=== PATIENT | male | born 1965 ===

== ENCOUNTER 2018-12-23 18:52 | Inpatient (IN) ==
[2018-12-23] MEDS ORDERED: *HR* FentaNYL (PF) 100 MCG/2 ML VIAL IVP ONE (18:56)
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
[2018-12-23 19:18] LABS: Basophils # 0.1 K/mcL (0.0-0.2); Basophils % 0.4 %; Eosinophils # 0.3 K/mcL (0.0-0.6); Eosinophils % 1.9 %; Hematocrit 45.3 % (37.5-50.1); Immature Granulocytes % 0.4 % (0-4); Lymphocytes # 2.4 K/mcL (0.6-4.6); Lymphocytes % 17.3 %; Mean Corpuscular HGB Conc 33.1 g/dL (31.6-35.5); Mean Corpuscular Hemoglobin 29.2 pg (28.0-33.3); Mean Corpuscular Volume 88.3 fL (83.0-100.0); Mean Platelet Volume 10.6 fL (9.4-12.4); Monocytes # 0.9 K/mcL (0.0-1.3); Monocytes % 6.7 %; Platelet Count 275 K/mcL (140-400); Red Blood Count 5.13 M/mcL (4.19-5.50); Red Cell Distribution Width 14.7 % (11.5-14.5); Segmented Neutrophils % 73.3 %
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
[2018-12-23 19:39] LABS: BUN/Creatinine Ratio 22 (6-26); Blood Urea Nitrogen 24 mg/dL (6-20); Calcium 10.3 mg/dL (8.6-10.3); Carbon Dioxide 24 mEq/L (23-29); Chloride 104 mEq/L (98-107); Glucose 178 mg/dL (70-105); Osmolality,Calculated 294 (280-300); Potassium 4.8 mEq/L (3.5-5.1); Sodium 138 mEq/L (136-145); eGFR For Non-African Americans > 60 (> 60)
[2018-12-23] MEDS ORDERED: Dextrose Gel 15 GM/37.5 ML TUBE PO PRN ×2 (20:29)
[2018-12-23] MEDS ORDERED: *HR* Dextrose 50 % in Water (Syg) 50 ML SYRINGE IVP PRN (20:29)
[2018-12-23] MEDS: OXYCODONE Oral CONC 10 MG/0.5 ML ORAL.SYG SL PRN (21:20)
[2018-12-23] MEDS ORDERED: *HR* Morphine Sulfate SR (12 HR) 30 MG TABLET.ER PO ONE (22:50)
[2018-12-23] MEDS: *HR* Heparin 5,000 UNIT/ML VIAL SQ SCH (22:59)
[2018-12-23] MEDS: Insulin LISPRO 300 UNITS/3 ML VIAL SQ SCH (22:59)
[2018-12-23] MEDS: Ketorolac 30 MG/ML VIAL IVP PRN (22:59)
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
[2018-12-24] MEDS: OXYCODONE Oral CONC 10 MG/0.5 ML ORAL.SYG SL PRN ×2 (01:36→09:30)
[2018-12-24] MEDS ORDERED: *HR* Nalbuphine 10 MG/ML AMPUL IV ONE (02:47)
[2018-12-24] MEDS: Ketorolac 30 MG/ML VIAL IVP PRN ×2 (06:07→12:18)
[2018-12-24] MEDS: Insulin LISPRO 300 UNITS/3 ML VIAL SQ SCH ×3 (06:26→20:55)
[2018-12-24 06:56] LABS: Prothrombin Time 11.4 Seconds (9.4-12.1)
[2018-12-24 06:58] LABS: Activated Partial Thrombo Time 29.6 Seconds (26.0-36.0)
[2018-12-24] MEDS ORDERED: Pregabalin 75 MG CAPSULE PO SCH (09:00)
[2018-12-24] MEDS ORDERED: Finasteride 5 MG TABLET PO SCH (09:00)
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
[2018-12-24] MEDS: *HR* Heparin 5,000 UNIT/ML VIAL SQ SCH ×2 (09:29→16:43)
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
--- NOTE | 2018-12-24 11:28 | Anesthesia Evaluation PreOp ---
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 Any Significant HX Other Medical History: Renal (BPH), Diabetes Type II, GERD Anesthesia History: No Prior Anesthetic Complications, Past Anesthesia (Right B KA) Alcohol Use: none Drug use: none Medications and Allergies Atorvastatin [Lipitor] 40 DAILY 12/23/18 [History] Finasteride [Proscar] 10 mg PO DAILY 12/23/18 [History] Insulin Glargine [Lantus] 20 unit BID 12/23/18 [History] Liraglutide [Victoza 3-Mychal] mg SQ 12/23/18 [History] Melatonin 12/23/18 [History] Omeprazole [PriLOSEC] 20 mg PO DAILY 12/23/18 [History] Prazosin [Minipress] 1 mg PO HS 12/23/18 [History] Pregabalin [Lyrica] 300 mg PO BID 12/23/18 [History] metFORMIN [Glucophage] 2,000 mg PO 0800 12/23/18 [History] Allergy/AdvReac Type Severity Reaction Status Date / Time adalimumab [From Humira] Allergy Joint Pain Verified 12/23/18 19:17 - Meds/Allergy Pre-op Review Medications Reviewed: Yes Allergies Reviewed: Yes Beta Blockers on Current Med List: No Anesthesia Results - Labs 12/23/18 19:02 12/23/18 19:02 Anesthesia Exam Vital Signs/O2 Sat/Glucose, Most Recent Temp Pulse Resp BP Pulse Ox 98.5 F 107 16 104/67 95 12/24/18 06:45 12/24/18 06:45 12/24/18 06:45 12/24/18 06:45 12/24/18 06:45 Blood Glucose* 157 Height: 5'10"/1.78m Weight: 181 lbs/82 kg NPO (# of Hours): 8 Pain Scale: 4 (at rest) Pain Scale Used: Numeric (1 - 10) - HEENT Pupil (Motor): EOMI Mallampati: II Teeth: Normal Oral Opening: Greater than 3 - MANAGER [employer] LOC: Oriented MANAGER [employer]ETING Motor: Normal RUE, Normal LUE, Normal LLE, Normal Face, Deficit RLE (right BKA) MANAGER [employer] Sensory: Normal: RUE, LUE, LLE, Face, Deficit: RLE (right BKA) - Cardiac Rhythm: Regular Murmur: None - Pulmonary Breath Sounds: bilateral Clear Respiratory Effort: Symmetrical Anesthesia Assess/Plan ASA Score: 3 Level of consciousness: Cooperative, Oriented, Tranquil Anesthetic Plan: General Monitoring Plan: Standard Monitors Recovery Plan: PACU
[2018-12-24] MEDS ORDERED: *HR* Propofol 200 MG/20 ML VIAL IVP ONE (15:25)
[2018-12-24] MEDS ORDERED: *HR* Midazolam HCl 2 MG/2 ML VIAL ONE (15:25)
[2018-12-24] MEDS ORDERED: *HR* FentaNYL (PF) 100 MCG/2 ML VIAL ONE (15:25)
[2018-12-24] MEDS ORDERED: CeFAZolin Syr 2,000MG/20 ML 2,000 MG/20 ML SYRINGE IVPB ONE (15:51)
[2018-12-24] MEDS ORDERED: Ipratropium/Albuterol Neb 3 ML ONE (15:55)
[2018-12-24] MEDS ORDERED: *HR* PHENYLEPHRINE 1,000 MCG/10 ML SYRINGE IVP ONE (16:12)
[2018-12-24] MEDS ORDERED: *HR* Morphine 10 MG/ML VIAL ONE (16:43)
--- NOTE | 2018-12-24 16:59 | Orthopedic Operative Note ---
Date of procedure: 12/24/18 Pre-op diagnosis: Left hip fracture Post-op diagnosis: same Procedure: Procedure: Left hip open reduction intramedullary nail fixation Estimated blood loss: 50 cc Hardware: Metal: 10 x 130 degrees Synthes TFN, 95 mm helical blade, 36 mm distal locking bolt Operative procedure: The patient was brought to the operating room and placed on the operating room table. After general anesthesia was administered the well leg was place in the well leg ly and the operative leg was placed in the fracture leg ly. All pressure points were padded appropriately. The operative extremity was prepped and draped in the sterile surgical fashion patient received IV antibiotic prior to skin incision. A standard direct lateral approach was made over the entry point of the greater trochanter, the incision was made through the skin and subcutaneous tissue hemostasis was obtained with Bovie cautery. Using careful sharp dissection the fascia was identified and incised, flouroscopic assistance was used to identify the entry point. The guidepin was placed at the entry point using fluroscopic assistance, it was over reamed with the proximal reamer. The 10 x 130 degrees nail was placed through the entry hole, across the fracture site into the distal fragment. the position was confirmed with fluroscopy. A guide pin was placed through the proximal locking guide from the lateral femur through the nail across the fracture site into the femoral head, it was over reamed with the reamer. The 95 mm helical blade was placed over the guide pin through the nail into the femoral head, locked in place with the proximal locking bolt. 36 mm Distal locking bolt was placed through the distal locking guide. position of hardware and fracture reduction found to be acceptable with fluroscopic assistance. The wound was irrigated. Fascia was closed with a running #2 PDS suture. The deep tissue was irrigated and closed deep with #1 PDS suture superficially with 0 PDS suture and skin was closed with Dermabond. The patient was placed in a sterile dressing The patient was extubated and transferred to the recovery room in stable condition. Anesthesia: GETA Surgeon: Gomez Velez Was there an psychologist research assistant present: No Estimated blood loss (cc): 50 Condition: stable Disposition: PACU
[2018-12-24 18:00] LABS: Hematocrit 44.9 % (37.5-50.1); Hemoglobin 13.9 g/dL (12.9-16.9)
--- NOTE | 2018-12-24 18:04 | Anesthesia Evaluation Post Op ---
Date of Encounter: 12/24/18 Time of Encounter: 18:03 - Vital Signs Vital Signs: Last Vital Signs Temp 99.2 F 12/24/18 17:42 Pulse 115 12/24/18 17:52 Resp 12 12/24/18 17:52 BP 91/55 12/24/18 17:52 Pulse Ox 100 12/24/18 17:52 - Lungs Lungs: Clear Ascult./Percussion - Airway Airway: Non-obstructed - Cardiovascular Regular Rate - Mental Status Mental Status: Alert & Oriented, Answers Appropriately - Pain Pain Scale: 2 (resting) - Nausea Vomiting Nausea Vomiting: Not Present - Hydration Hydration: NPO - Discharge PostOp Status: Transfer Patient to floor
[2018-12-24] MEDS ORDERED: Dextrose Gel 15 GM/37.5 ML TUBE PO PRN ×2 (18:37)
[2018-12-24] MEDS ORDERED: *HR* Dextrose 50 % in Water (Syg) 50 ML SYRINGE IVP PRN (18:37)
[2018-12-24] MEDS ORDERED: Ketorolac 30 MG/ML VIAL IVP PRN (18:37)
[2018-12-24] MEDS ORDERED: 0.9 % Sodium Chloride 1,000 ML ONE (18:42)
[2018-12-24] MEDS ORDERED: 0.9 % Sodium Chloride 1,000 ML IVC SCH ×2 (18:45→20:30)
[2018-12-24 19:07] LABS: Hematocrit 46.2 % (37.5-50.1); Hemoglobin 13.9 g/dL (12.9-16.9)
[2018-12-24 19:35] LABS: Basophils # 0.1 K/mcL (0.0-0.2); Basophils % 0.3 %; Eosinophils # 0.1 K/mcL (0.0-0.6); Eosinophils % 0.3 %; Hematocrit 41.9 % (37.5-50.1); Hemoglobin 13.1 g/dL (12.9-16.9); Immature Granulocytes % 0.5 % (0-4); Lymphocytes # 0.6 K/mcL (0.6-4.6); Lymphocytes % 2.9 %; Mean Corpuscular HGB Conc 31.3 g/dL (31.6-35.5); Mean Corpuscular Volume 92.9 fL (83.0-100.0); Mean Platelet Volume 10.5 fL (9.4-12.4); Monocytes # 0.8 K/mcL (0.0-1.3); Monocytes % 3.9 %; Neutrophils # 17.8 K/mcL (1.6-8.9); Platelet Count 201 K/mcL (140-400); Red Blood Count 4.51 M/mcL (4.19-5.50); Segmented Neutrophils % 92.1 %
[2018-12-24 19:53] LABS: Albumin 3.9 g/dL (3.5-5.7); Albumin/Globulin Ratio 1.2 (1.1-2.2); Bilirubin,Total 0.3 mg/dL (0.3-1.0); Calcium 9.2 mg/dL (8.6-10.3); Globulin 3.2 g/dL (2.4-3.5); Potassium 4.9 mEq/L (3.5-5.1); Total Protein 7.1 g/dL (6.4-8.9)
[2018-12-24] MEDS: Pregabalin 75 MG CAPSULE PO SCH (20:15)
[2018-12-24] MEDS ORDERED: Acetaminophen IV 1,000 MG/100 ML INFUS..BTL IVPB ONE (20:48)
[2018-12-24] MEDS ORDERED: *HR* Morphine Sulfate SR (12 HR) 30 MG TABLET.ER PO ONE (21:15)
[2018-12-25] MEDS ORDERED: Insulin DETEMIR 100 UNIT/ML X5UNITS SQ ONE ×2 (00:46→14:36)
[2018-12-25] MEDS: Insulin LISPRO 300 UNITS/3 ML VIAL SQ SCH ×3 (00:51→19:14)
--- NOTE | 2018-12-25 02:03 | Event Note ---
Date of Encounter: 12/24/18 Time of Encounter: 19:02 Rapid response called on this pt. d/t severe hypotension following surgery this afternoon. Pt. returned to floor from PACU at approx. 18:30 w/BP noted to be 91/55. Pt. noted to be drowsy but arousable. Subsequent BP 72/46. I arrived to find pt. very drowsy but would respond to mild stimulation. Pt. reported no pain, CP, SOB, or headache. BG noted to be 150. 0.9 IV fluids were running at 125 mls/hr and nurse instructed to change to bolus. Pt. denied any cardiac hx or recent w/u. No Echocardiogram on file to determine LVEF. Stat EKG ordered. BPs ordered Q5MIN. Stat H/H, CMP, CBC, lactic, and troponin ordered. Lactic 1.4. Troponin <0.03. Pt. was pale at first then began to pink up following fluid bolus. Pt. began reporting pain in left hip from left hip pinning today. Nurse instructed to hold all opioid pain medications and BP meds for now. BP increased to 90s systolically but did fluctuate to 80s and back. BP at 19:44 100/60 manually. HR tachy in 110s to 120s. Telemetry ordered. Pts. pain began to increase. IVPB Ofirmev ordered d/t pts. current hypotension. Alerted by pts. nurse Mandie RN at 00:38 patient's BG was 471. Patient was asymptomatic. Patient had received 14 units SQ sliding scale insulin. 15 units Levemir one- time dose ordered with instructions to check patient's BG every hour 4. Pts. Toradol held and Ultram ordered for pain control while pt. continues to be hypotensive. Nurse instructed to continue monitoring pt. closely and alert me immediately of any adverse changes.
[2018-12-25] MEDS: traMADol 50 MG TABLET PO PRN ×2 (02:07→09:16)
[2018-12-25] MEDS ORDERED: Acetaminophen IV 500 MG/50 ML INFUS..BTL IVPB ONE (04:18)
[2018-12-25] MEDS ORDERED: 0.9 % Sodium Chloride 1,000 ML ONE (05:02)
[2018-12-25 06:32] LABS: Hematocrit 42.9 % (37.5-50.1); Hemoglobin 12.9 g/dL (12.9-16.9); Mean Corpuscular HGB Conc 30.1 g/dL (31.6-35.5); Mean Corpuscular Volume 96.4 fL (83.0-100.0); Mean Platelet Volume 10.7 fL (9.4-12.4); Platelet Count 171 K/mcL (140-400); Red Blood Count 4.45 M/mcL (4.19-5.50); Red Cell Distribution Width 14.6 % (11.5-14.5)
[2018-12-25] MEDS: *HR* Heparin 5,000 UNIT/ML VIAL SQ SCH ×3 (06:35→20:12)
--- NOTE | 2018-12-25 06:40 | Orthopedics Progress Note ---
Date of Encounter: 12/25/18 Time of Encounter: 06:40 Subjective Interval history: Patient was seen this morning doing well without complaints. Afebrile vital signs stable. Operative extremity: Neurovascularly intact Dressing clean dry and intact Calves nontender Assessment and plan: Continue with postoperative care Discharged when cleared by medical team Objective Vital signs: Vital Signs Temp Pulse Resp BP Pulse Ox 12/25/18 04:11 98.1 F 102 17 119/72 92 12/25/18 00:36 98 12/24/18 23:15 97.6 F 105 17 94/60 98 12/24/18 20:48 111 100/64 12/24/18 20:35 117 127/66 12/24/18 20:24 113 99/62 12/24/18 20:14 112 104/59 12/24/18 20:04 112 115/72 12/24/18 19:54 116 72/39 12/24/18 19:45 117 80/48 12/24/18 19:34 118 99/57 12/24/18 19:30 114 60/32 12/24/18 19:24 115 88/55 12/24/18 19:17 117 14 88/54 92 12/24/18 19:15 115 93/57 12/24/18 19:04 112 115/72 12/24/18 18:33 119 12 87/54 12/24/18 18:02 98.3 F 115 12 85/48 100 12/24/18 17:52 115 12 91/55 100 12/24/18 17:42 99.2 F 117 12 89/53 100 12/24/18 17:32 115 12 94/56 99 12/24/18 17:22 116 12 93/56 100 12/24/18 17:12 98.8 F 116 12 106/64 95 12/24/18 15:50 99 16 100/69 93 12/24/18 11:47 98.7 F 102 97 101/64 12/24/18 06:45 98.5 F 107 16 104/67 95 Intake and Output 12/24/18 12/24/18 12/25/18 15:59 23:59 07:59 Intake Total 1020 / 1020 Output Total 50 / 50 650 / 650 Balance 970 / 970 -650 / -650 Intake: IV Fluids 1020 / 1020 0.9 % Sodium Chloride 1,000 ML 1000 / 1000 @ 999 mls/hr IVC .Q1H1M SIMRAN Rx# :[id number] Ancef Syringe 2,000 MG/20 ML 2, 20 / 20 000 mg In 20 ml @ 200 mls/hr IVPB PREOP ONE Rx#:[id number] Output: Urine 250 / 250 Estimated Blood Loss 50 / 50 Straight Cath 400 / 400 Other: Weight 82.3 kg Blood Glucose* 73 150 374 Patient Weight 12/25/18 23:59 Weight 82.3 kg - Labs CBC & BMP: 12/24/18 19:23 12/24/18 19:23 Labs: Abnormal lab results WBC 19.3 K/mcL (4.3-11.1) H 12/24/18 19:23 MCHC 31.3 g/dL (31.6-35.5) L 12/24/18 19:23 RDW 15.0 % (11.5-14.5) H 12/24/18 19:23 Neutrophils # 17.8 K/mcL (1.6-8.9) H 12/24/18 19:23 Carbon Dioxide 22 mEq/L (23-29) L 12/24/18 19:23 BUN 38 mg/dL (6-20) H 12/24/18 19:23 Creatinine 1.66 mg/dL (0.70-1.30) H 12/24/18 19:23 Est GFR ( Amer) 53 (> 60) L 12/24/18 19:23 Est GFR (Non-Af Amer) 44 (> 60) L 12/24/18 19:23 Glucose 183 mg/dL (70-105) H 12/24/18 19:23 Calculated Osmolality 302 (280-300) H 12/24/18 19:23 Consult Discharge Plan - Plan [facility]errals: [facility] [Primary Care Provider] -
[2018-12-25 07:40] LABS: Potassium 5.4 mEq/L (3.5-5.1)
[2018-12-25 07:41] LABS: Calcium 8.4 mg/dL (8.6-10.3)
[2018-12-25] MEDS ORDERED: Insulin Regular, Human 100 UNIT/ML IV PRN ×2 (08:50→12:04)
[2018-12-25] MEDS ORDERED: Insulin Regular, Human 100 UNIT/ML IV ONE (08:50)
[2018-12-25] MEDS ORDERED: D5% in 0.45% NACL 1,000 ML IVC PRN (08:50)
[2018-12-25] MEDS ORDERED: *HR* Dextrose 50 % in Water (Syg) 50 ML SYRINGE IVP PRN ×6 (08:50→16:10)
[2018-12-25] MEDS ORDERED: Finasteride 5 MG TABLET PO SCH (09:00)
[2018-12-25] MEDS ORDERED: Insulin Human Regular 100 UNIT in 0.9 % Sodium Chloride 100 ML IVC SCH ×2 (09:00→12:15)
[2018-12-25] MEDS: Pregabalin 75 MG CAPSULE PO SCH ×2 (09:16→20:12)
[2018-12-25 10:40] LABS: Estimated Average Glucose 260 mg/dl; Hemoglobin A1C 10.7 %
[2018-12-25] MEDS: OXYCODONE Oral CONC 10 MG/0.5 ML ORAL.SYG SL PRN ×3 (11:38→20:12)
[2018-12-25] MEDS ORDERED: D5% in 0.45% NACL w KCl 20 MEQ/1,000 ML MLS IVC PRN (12:04)
[2018-12-25 13:03] LABS: BUN/Creatinine Ratio 26 (6-26); Blood Urea Nitrogen 36 mg/dL (6-20); Calcium 8.9 mg/dL (8.6-10.3); Carbon Dioxide 23 mEq/L (23-29); Chloride 106 mEq/L (98-107); Glucose 90 mg/dL (70-105); Osmolality,Calculated 296 (280-300); Potassium 4.3 mEq/L (3.5-5.1); Sodium 139 mEq/L (136-145); eGFR For Non-African Americans 53 (> 60)
[2018-12-25 14:25] LABS: BUN/Creatinine Ratio 26 (6-26); Blood Urea Nitrogen 35 mg/dL (6-20); Calcium 8.5 mg/dL (8.6-10.3); Carbon Dioxide 21 mEq/L (23-29); Chloride 108 mEq/L (98-107); Glucose 99 mg/dL (70-105); Osmolality,Calculated 292 (280-300); Potassium 4.5 mEq/L (3.5-5.1); Sodium 137 mEq/L (136-145); eGFR For Non-African Americans 56 (> 60)
[2018-12-25] MEDS ORDERED: Dextrose Gel 15 GM/37.5 ML TUBE PO PRN ×6 (14:39→16:10)
[2018-12-25] MEDS ORDERED: D5% in Water 1,000 ML IVC PRN ×2 (14:39→16:10)
[2018-12-25] MEDS: 0.45 % Sodium Chloride w/KCl 20 MEQ/1,000 ML MLS IVC SCH ×2 (15:09→15:10)
--- NOTE | 2018-12-25 16:32 | Internal Med Progress Note ---
Hospitalist Progress Note - Encounter Date of Encounter: 12/25/18 Time of Encounter: 14:00 - Subjective Interval History: Was hypotensive post surgery and received IV fluids. Went into DKA overnight - Exam Vitals: Temp Pulse Resp BP Pulse Ox 97.6 F 90 14 115/68 95 12/25/18 12:00 12/25/18 15:00 12/25/18 15:00 12/25/18 15:00 12/25/18 06:30 Exam: General: pleasant, without distress HEENT: Head atraumatic, normocephalic, EOMI, PERRL, absent ear discharge or trauma, Moist Mucous Membranes, uvula midline Neck: nontender to palpation, absent lymphadenopathy, Cardiovascualr: Regular rate and rhythm with no murmur, absent gallops or rubs, absent pedal edema, radial pulses 2 out of 4 Lungs: Clear to auscultation bilaterally, not in respiratory distress Abdomen: Soft nontender, nondistended positive bowel sounds, absent hepatomegaly Skin: warm and dry, absent rash, absent open wounds and nodules MSK: absent clubbing, cyanosis, joints without swelling. Left hip pain with movement Neuro: Alert oriented 3, no focal deficit Psych: good insight and judgment, - Assessment and Plan (1) Intertrochanteric fracture of left femur Current Visit: Yes Status: Acute Assessment and Plan: Left hip fracture s/p fall. PAtient had ORIF and is postop day#1 Seen by PT and huber for discharge to rehab (2) Diabetic ketoacidosis Current Visit: Yes Status: Acute Assessment and Plan: patient went into DKA this am with an anion gap of 15. Was started on an insulin drip and anion gap has closed Transitioned back to short and long acting insulin (3) Diabetes mellitus Current Visit: Yes Status: Acute Assessment and Plan: Resume basal and short acting insulin (4) BPH (benign prostatic hyperplasia) Current Visit: Yes Status: Acute Assessment and Plan: Continue prazosin and finasteride DVT Prophylaxis: heparin sc q 12h - Time Spent with Patient Total time spent is greater than 50% in coordination of care (as documented) at patient's floor/unit and/or counseling patient: Internal Medicine: Result - Labs CBC & Chem 7: 12/25/18 06:10 12/25/18 13:44 Labs: Short CBC 12/24/18 12/24/18 12/24/18 Range/Units 17:51 18:55 19:23 WBC 19.3 H (4.3-11.1) K/mcL Hgb 13.9 13.9 13.1 (12.9-16.9) g/dL Hct 44.9 46.2 41.9 (37.5-50.1) % Plt Count 201 (140-400) K/mcL Neutrophils # 17.8 H (1.6-8.9) K/mcL 12/25/18 Range/Units 06:10 WBC 14.0 H (4.3-11.1) K/mcL Hgb 12.9 (12.9-16.9) g/dL Hct 42.9 (37.5-50.1) % Plt Count 171 (140-400) K/mcL Neutrophils # (1.6-8.9) K/mcL BMP 12/24/18 12/25/18 12/25/18 19:23 06:10 12:27 Sodium 139 131 L 139 Potassium 4.9 5.4 H 4.3 Chloride 107 104 106 Carbon Dioxide 22 L 12 L 23 BUN 38 H 39 H 36 H Creatinine 1.66 H 1.61 H 1.41 H Glucose 183 H 443 H 90 Calcium 9.2 8.4 L 8.9 12/25/18 13:44 Sodium 137 Potassium 4.5 Chloride 108 H Carbon Dioxide 21 L BUN 35 H Creatinine 1.34 H Glucose 99 Calcium 8.5 L Cardiac Enzymes 12/24/18 Range/Units 19:23 Troponin I 0.03 (< 0.04) ng/mL Liver Function 12/24/18 Range/Units 19:23 Total Bilirubin 0.3 (0.3-1.0) mg/dL AST 22 (13-39) Units/L ALT 15 (7-52) Units/L Alkaline Phosphatase 66 (34-104) Units/L Albumin 3.9 (3.5-5.7) g/dL - ABG Interpretation ABG results: PT/INR, D-dimer PT 11.4 Seconds (9.4-12.1) 12/24/18 06:20 - Impressions Impressions Hip X-Ray 12/24/18 16:02 IMPRESSION: ORIF of the left intertrochanteric hip fracture with gamma nail placement. D/ / Jamaal Martinez MD / Jamaal Martinez MD Interpreting Provider: Jamaal Martinez MD Fluoroscopy 12/24/18 16:25 IMPRESSION: Intraprocedural fluoroscopic spot images as above. See separate procedure report for more information. D/ / Dylan Castano MD / Dylan Castano MD Interpreting Provider: Dylan Castano MD Hip X-Ray 12/24/18 16:25 IMPRESSION: Intraprocedural fluoroscopic spot images as above. See separate procedure report for more information. D/ / Dylan Castano MD / Dylan Castano MD Interpreting Provider: Dylan Castano MD Consult Discharge Plan - Plan [facility]errals: [facility] [Primary Care Provider] - (1) Intertrochanteric fracture of left femur Qualifiers: Encounter type: initial encounter Fracture type: closed Fracture alignment: displaced Qualified Code(s): S72.142A - Displaced intertrochanteric fracture of left femur, initial encounter for closed fracture (3) Diabetes mellitus Qualifiers: Diabetes mellitus type: type 2 Diabetes mellitus prison insulin use: with long term care pharmacist use Diabetes mellitus complication status: with unspecified complications Qualified Code(s): E11.8 - Type 2 diabetes mellitus with unspecified complications; 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
[2018-12-25 17:28] LABS: BUN/Creatinine Ratio 26 (6-26); Blood Urea Nitrogen 32 mg/dL (6-20); Calcium 8.9 mg/dL (8.6-10.3); Carbon Dioxide 22 mEq/L (23-29); Chloride 106 mEq/L (98-107); Glucose 94 mg/dL (70-105); Osmolality,Calculated 293 (280-300); Potassium 4.5 mEq/L (3.5-5.1); Sodium 138 mEq/L (136-145); eGFR For Non-African Americans > 60 (> 60)
[2018-12-25] MEDS ORDERED: Insulin LISPRO 300 UNITS/3 ML VIAL SQ SCH (18:00)
[2018-12-25] MEDS ORDERED: Insulin DETEMIR 100 UNIT/ML X5UNITS SQ SCH ×2 (21:00)
[2018-12-25] MEDS ORDERED: *HR* Heparin 5,000 UNIT/ML VIAL SQ SCH (22:00)
[2018-12-26] MEDS: OXYCODONE Oral CONC 10 MG/0.5 ML ORAL.SYG SL PRN ×3 (00:23→19:55)
[2018-12-26] MEDS: Insulin LISPRO 300 UNITS/3 ML VIAL SQ SCH ×5 (00:25→23:37)
[2018-12-26] MEDS: *HR* Heparin 5,000 UNIT/ML VIAL SQ SCH ×3 (05:29→23:37)
--- NOTE | 2018-12-26 06:33 | Orthopedics Progress Note ---
Date of Encounter: 12/26/18 Time of Encounter: 06:33 Subjective Interval history: Patient was seen this morning doing well without complaints. Afebrile vital signs stable. Operative extremity: Neurovascularly intact Dressing clean dry and intact Calves nontender Assessment and plan: Continue with postoperative care Okay for discharge from orthopedic perspective Objective Vital signs: Vital Signs Temp Pulse Resp BP Pulse Ox 12/26/18 03:29 98.8 F 97 16 92/55 94 12/26/18 00:08 98.6 F 98 16 108/64 93 12/25/18 18:56 99.7 F H 99 16 123/69 92 12/25/18 15:00 90 14 115/68 12/25/18 14:00 94 14 138/93 12/25/18 13:08 84 14 101/64 12/25/18 12:00 97.6 F 84 14 105/65 12/25/18 07:15 112/68 Intake and Output 12/25/18 12/25/18 12/26/18 15:59 23:59 07:59 Intake Total 120 / 120 Output Total 550 / 550 450 / 450 750 / 750 Balance -430 / -430 -450 / -450 -750 / -750 Intake: Oral 120 / 120 Output: Urine 550 / 550 450 / 450 750 / 750 Other: Meal Breakfast Percent of Meal Consumed 100% Weight 83 kg Blood Glucose* 120 108 81 Patient Weight 12/26/18 23:59 Weight 83 kg - Labs CBC & BMP: 12/25/18 06:10 12/25/18 16:35 Labs: Abnormal lab results WBC 14.0 K/mcL (4.3-11.1) H 12/25/18 06:10 MCHC 30.1 g/dL (31.6-35.5) L 12/25/18 06:10 RDW 14.6 % (11.5-14.5) H 12/25/18 06:10 Neutrophils # 17.8 K/mcL (1.6-8.9) H 12/24/18 19:23 Carbon Dioxide 22 mEq/L (23-29) L 12/25/18 16:35 BUN 32 mg/dL (6-20) H 12/25/18 16:35 POC Glucose 105 mg/dL (70-99) H 12/25/18 14:59 Hemoglobin A1c 10.7 % (-5.6) H 12/25/18 09:40 Consult Discharge Plan - Plan Referrals: [facility] [Primary Care Provider] -
[2018-12-26 07:02] LABS: Calcium 8.7 mg/dL (8.6-10.3); Potassium 4.6 mEq/L (3.5-5.1)
[2018-12-26] MEDS: Pregabalin 75 MG CAPSULE PO SCH ×2 (08:33→19:55)
[2018-12-26] MEDS: Finasteride 5 MG TABLET PO SCH (08:36)
[2018-12-26] MEDS: Ketorolac 30 MG/ML VIAL IVP PRN (08:37)
--- NOTE | 2018-12-26 09:27 | Discharge Summary ---
Orders not resulted at time of discharge: Pending orders 12/24/18 18:38 EKG [ECG 12 lead ECG] [ECG] Stat EKG [ECG 12 lead ECG] [ECG] Stat Date of Encounter: 12/26/18 - Discharge Diagnosis (1) Intertrochanteric fracture of left femur Priority: Primary Status: Acute Assessment and Plan: Left hip fracture s/p fall. PAtient had ORIF and is postop day#1 Seen by PT and huber for discharge to rehab Qualifiers: Encounter type: initial encounter Fracture type: closed Fracture alignment: displaced Qualified Code(s): S72.142A - Displaced intertrochanteric fracture of left femur, initial encounter for closed fracture (2) Diabetic ketoacidosis Status: Acute (3) Diabetes mellitus Status: Acute Qualifiers: Diabetes mellitus type: type 2 Diabetes mellitus termite treater helper insulin use: with termite treater helper use Diabetes mellitus complication status: with unspecified complications Qualified Code(s): E11.8 - Type 2 diabetes mellitus with unspecified complications; Z79.4 - custodial (current) use of insulin (4) BPH (benign prostatic hyperplasia) Status: Acute Qualifiers: Lower urinary tract symptom presence: unspecified whether lower urinary tract symptoms present Qualified Code(s): N40.0 - Benign prostatic hyperplasia without lower urinary tract symptoms Hospital course: Mr. Rubi is a 53 year old male - Time Spent with Patient Total time spent providing and/or coordinating discharge services: - Discharge Medications Prescriptions: Continue Liraglutide [Victoza 3-Mychal] 1.8 mg SQ DAILY Insulin Glargine [Lantus] 20 unit SQ BID Pregabalin [Lyrica] 300 mg PO BID Omeprazole [PriLOSEC] 20 mg PO DAILY Finasteride [Proscar] 5 mg PO DAILY Prazosin [Minipress] 1 mg PO HS Atorvastatin [Lipitor] 40 mg PO DAILY Melatonin 6 mg PO HS Metformin HCl [Metformin ER Osmotic] 2,000 mg PO BID Aspirin [Lo-Dose Aspirin EC] 81 mg PO DAILY Dicyclomine Hcl [Bentyl] 20 mg PO TID PRN PRN Reason: STOMACH PAIN FLUoxetine HCl [Prozac] 20 mg PO DAILY Tamsulosin HCl [Flomax] 0.4 mg PO DAILY Home Medications: Atorvastatin [Lipitor] 40 mg PO DAILY 12/23/18 [History] Finasteride [Proscar] 5 mg PO DAILY 12/23/18 [History] Insulin Glargine [Lantus] 20 unit SQ BID 12/23/18 [History] Liraglutide [Victoza 3-Mychal] 1.8 mg SQ DAILY 12/23/18 [History] Melatonin 6 mg PO HS 12/23/18 [History] Omeprazole [PriLOSEC] 20 mg PO DAILY 12/23/18 [History] Prazosin [Minipress] 1 mg PO HS 12/23/18 [History] Pregabalin [Lyrica] 300 mg PO BID 12/23/18 [History] Aspirin [Lo-Dose Aspirin EC] 81 mg PO DAILY 12/24/18 [History] Dicyclomine Hcl [Bentyl] 20 mg PO TID PRN 12/24/18 [History] FLUoxetine HCl [Prozac] 20 mg PO DAILY 12/24/18 [History] Metformin HCl [Metformin ER Osmotic] 2,000 mg PO BID 12/24/18 [History] Tamsulosin HCl [Flomax] 0.4 mg PO DAILY 12/24/18 [History] Allergies/Adverse Reactions: Allergy/AdvReac Type Severity Reaction Status Date / Time adalimumab [From Humira] Allergy Joint Pain Verified 12/23/18 19:17 Date of admission: 12/23/18 20:28 [facility] Consults: 12/23/18 19:19 Consult to Orthopedic Surgery [CONS] Stat Consulting Provider: [facility] Reason for Consult: hip fracture Call Completed: Yes 12/24/18 18:37 Consult to Occupational Therapy [CONS] Routine Comment: Evaluate, develop and implement POC Reason for Consult: post hip surgery Does patient have active BEDREST order?: No Is patient medically & hemodynamically stable?: Yes Patient assessed for mobility or mobilized this visit?: Yes Consult to Orthopedic Navigator [CONS] [CONS] Routine Consult to Physical Therapy [CONS] Routine Comment: Evaluate, develop and implement POC Reason for Consult: post hip surgery Does patient have active BEDREST order?: No Is patient medically & hemodynamically stable?: Yes Patient assessed for mobility or mobilized this visit?: Yes Consult to Forester Silviculture [CONS] Routine Reason for SW Consult: post -op hip fracture RT Post Op Consult [CONS] Routine - Constitutional Vitals: Temp Pulse Resp BP Pulse Ox 98.5 F 93 18 97/60 93 12/26/18 06:31 12/26/18 06:31 12/26/18 06:31 12/26/18 08:29 12/26/18 06:31 - Patient Status Condition: Undetermined - Discharge Instructions Follow Up With: SANDRA,PCP [Primary Care Provider] -
[2018-12-26] MEDS ORDERED: Ondansetron 4 MG/2 ML VIAL IVP PRN (11:21)
[2018-12-26] MEDS: 0.9 % Sodium Chloride 1,000 ML IVC SCH (11:52)
--- NOTE | 2018-12-26 14:19 | Electrocardiograph Report ---
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
--- NOTE | 2018-12-26 14:22 | Electrocardiograph Report ---
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
--- NOTE | 2018-12-26 14:47 | Electrocardiograph Report ---
[address] [place], [place] [address] Test Date: 2018-12-24 Pat Name: Robert Rubi Department: 114 Room: [facility] Gender: M Rn Maternity: AYUSH : 1965 Requested By: Cintia Puckett Order Number: [id number] Reading MD: Balbina Meneses Measurements Intervals [place] Rate: 118 P: 39 WA: 165 QRS: -6 QRSD: 90 T: 56 QT: 317 QTc: 387 Interpretive Statements SINUS TACHYCARDIA LOW VOLTAGE LIMB LEADS Electronically Signed On 12-26-2018 14:45:51 EDT by Balbina Meneses
[2018-12-26 15:11] LABS: Basophils # 0.1 K/mcL (0.0-0.2); Basophils % 0.4 %; Eosinophils # 0.3 K/mcL (0.0-0.6); Eosinophils % 2.6 %; Immature Granulocytes % 0.3 % (0-4); Lymphocytes # 3.3 K/mcL (0.6-4.6); Lymphocytes % 27.9 %; Mean Corpuscular HGB Conc 32.5 g/dL (31.6-35.5); Mean Corpuscular Hemoglobin 29.6 pg (28.0-33.3); Mean Corpuscular Volume 91.2 fL (83.0-100.0); Mean Platelet Volume 10.5 fL (9.4-12.4); Monocytes # 1.2 K/mcL (0.0-1.3); Neutrophils # 6.9 K/mcL (1.6-8.9); Platelet Count 203 K/mcL (140-400); Red Blood Count 3.07 M/mcL (4.19-5.50); Red Cell Distribution Width 14.6 % (11.5-14.5); Segmented Neutrophils % 58.8 %
[2018-12-26 15:15] LABS: Hemoglobin 9.1 g/dL (12.9-16.9)
[2018-12-26] MEDS: Levofloxacin 750 MG/150 ML 750 MG/150 ML BAG IVPB SCH (15:43)
--- NOTE | 2018-12-26 15:45 | Internal Med Progress Note ---
Hospitalist Progress Note - Encounter Date of Encounter: 12/26/18 Time of Encounter: 15:00 - Subjective Interval History: No acute events overnight - Exam Vitals: Temp Pulse Resp BP Pulse Ox 98.6 F 90 16 96/60 90 12/26/18 15:39 12/26/18 15:39 12/26/18 15:39 12/26/18 15:39 12/26/18 15:39 Exam: General: pleasant, without distress HEENT: Head atraumatic, normocephalic, EOMI, PERRL, absent ear discharge or trauma, Moist Mucous Membranes, uvula midline Neck: nontender to palpation, absent lymphadenopathy, Cardiovascualr: Regular rate and rhythm with no murmur, absent gallops or rubs, absent pedal edema, radial pulses 2 out of 4 Lungs: Clear to auscultation bilaterally, not in respiratory distress Abdomen: Soft nontender, nondistended positive bowel sounds, absent hepatomegaly Skin: warm and dry, absent rash, absent open wounds and nodules MSK: absent clubbing, cyanosis, joints without swelling. Left hip pain with movement Neuro: Alert oriented 3, no focal deficit Psych: good insight and judgment, - Assessment and Plan (1) Acute blood loss anemia Current Visit: Yes Status: Acute Assessment and Plan: Likely surgical blood loss. Pt was hypotensive this am and hemoglobin is down 9 from baseline of 15 Will transfuse 1 unit PRBC. Discontinue prazosin (2) Intertrochanteric fracture of left femur Current Visit: Yes Status: Acute Assessment and Plan: Left hip fracture s/p fall. PAtient had ORIF and is postop day#1 Seen by PT and huber for discharge to rehab (3) Diabetic ketoacidosis Current Visit: Yes Status: Acute Assessment and Plan: patient went into DKA this am with an anion gap of 15. Was started on an insulin drip and anion gap has closed Transitioned back to short and long acting insulin (4) Diabetes mellitus Current Visit: Yes Status: Acute Assessment and Plan: Resume basal and short acting insulin (5) BPH (benign prostatic hyperplasia) Current Visit: Yes Status: Acute Assessment and Plan: Continue prazosin and finasteride DVT Prophylaxis: heparin sc q 12h - Time Spent with Patient Total time spent is greater than 50% in coordination of care (as documented) at patient's floor/unit and/or counseling patient: Internal Medicine: Result - Labs CBC & Chem 7: 12/26/18 15:03 12/26/18 06:22 Labs: Short CBC 12/26/18 Range/Units 15:03 WBC 11.7 H (4.3-11.1) K/mcL Hgb 9.1 L D (12.9-16.9) g/dL Hct 28.0 L (37.5-50.1) % Plt Count 203 (140-400) K/mcL Neutrophils # 6.9 (1.6-8.9) K/mcL BMP 12/25/18 12/26/18 16:35 06:22 Sodium 138 137 Potassium 4.5 4.6 Chloride 106 105 Carbon Dioxide 22 L 25 BUN 32 H 31 H Creatinine 1.25 1.49 H Glucose 94 73 Calcium 8.9 8.7 - ABG Interpretation ABG results: PT/INR, D-dimer PT 11.4 Seconds (9.4-12.1) 12/24/18 06:20 - Impressions Impressions Chest X-Ray 12/26/18 11:21 IMPRESSION: Linear infiltrates at right lung base could represent subsegmental atelectasis or possibly pneumonia D/ / Kingsley Kennedy MD / Kingsley Kennedy MD Interpreting Provider: Kingsley Kennedy MD Consult Discharge Plan - Plan [facility]errals: [facility] [Primary Care Provider] - (2) Intertrochanteric fracture of left femur Qualifiers: Encounter type: initial encounter Fracture type: closed Fracture alignment: displaced Qualified Code(s): S72.142A - Displaced intertrochanteric fracture of left femur, initial encounter for closed fracture (4) Diabetes mellitus Qualifiers: Diabetes mellitus type: type 2 Diabetes mellitus fdc insulin use: with fdc use Diabetes mellitus complication status: with unspecified complications Qualified Code(s): E11.8 - Type 2 diabetes mellitus with unspecified complications; Z79.4 - terminal make up operator (current) use of insulin (5) BPH (benign prostatic hyperplasia) Qualifiers: Lower urinary tract symptom presence: unspecified whether lower urinary tract symptoms present Qualified Code(s): N40.0 - Benign prostatic hyperplasia without lower urinary tract symptoms
[2018-12-26] MEDS ORDERED: 0.9 % Sodium Chloride 250 ML ONE (18:28)
[2018-12-26] MEDS ORDERED: Insulin DETEMIR 100 UNIT/ML X5UNITS SQ SCH (21:00)
[2018-12-27] MEDS: 0.9 % Sodium Chloride 1,000 ML IVC SCH ×2 (02:50→15:22)
[2018-12-27] MEDS: OXYCODONE Oral CONC 10 MG/0.5 ML ORAL.SYG SL PRN ×5 (02:57→23:34)
[2018-12-27 05:15] LABS: Basophils # 0.1 K/mcL (0.0-0.2); Basophils % 0.7 %; Eosinophils # 0.4 K/mcL (0.0-0.6); Eosinophils % 3.8 %; Hematocrit 30.7 % (37.5-50.1); Immature Granulocytes % 0.5 % (0-4); Lymphocytes # 3.2 K/mcL (0.6-4.6); Lymphocytes % 30.4 %; Mean Corpuscular HGB Conc 32.6 g/dL (31.6-35.5); Mean Corpuscular Hemoglobin 29.5 pg (28.0-33.3); Mean Corpuscular Volume 90.6 fL (83.0-100.0); Mean Platelet Volume 10.4 fL (9.4-12.4); Monocytes # 1.3 K/mcL (0.0-1.3); Monocytes % 11.7 %; Neutrophils # 5.6 K/mcL (1.6-8.9); Platelet Count 213 K/mcL (140-400); Red Blood Count 3.39 M/mcL (4.19-5.50); Red Cell Distribution Width 14.8 % (11.5-14.5); Segmented Neutrophils % 52.9 %
[2018-12-27 05:36] LABS: BUN/Creatinine Ratio 26 (6-26); Blood Urea Nitrogen 32 mg/dL (6-20); Calcium 8.7 mg/dL (8.6-10.3); Carbon Dioxide 25 mEq/L (23-29); Chloride 110 mEq/L (98-107); Glucose 27 mg/dL (70-105); Osmolality,Calculated 293 (280-300); Potassium 4.3 mEq/L (3.5-5.1); Sodium 140 mEq/L (136-145); eGFR For Non-African Americans > 60 (> 60)
[2018-12-27] MEDS: *HR* Heparin 5,000 UNIT/ML VIAL SQ SCH ×3 (06:15→21:16)
[2018-12-27] MEDS: Ketorolac 30 MG/ML VIAL IVP PRN (06:22)
[2018-12-27] MEDS: Insulin LISPRO 300 UNITS/3 ML VIAL SQ SCH ×3 (06:31→17:56)
[2018-12-27] MEDS ORDERED: Dextrose Gel 15 GM/37.5 ML TUBE PO PRN ×2 (09:24)
[2018-12-27] MEDS ORDERED: *HR* Dextrose 50 % in Water (Syg) 50 ML SYRINGE IVP PRN (09:24)
[2018-12-27] MEDS: Levofloxacin 750 MG/150 ML 750 MG/150 ML BAG IVPB SCH (09:24)
[2018-12-27] MEDS ORDERED: D5% in Water 1,000 ML IVC PRN (09:24)
[2018-12-27] MEDS: Finasteride 5 MG TABLET PO SCH (09:25)
[2018-12-27] MEDS: Pregabalin 75 MG CAPSULE PO SCH ×2 (09:25→21:16)
--- NOTE | 2018-12-27 09:26 | Internal Med Progress Note ---
Hospitalist Progress Note - Encounter Date of Encounter: 12/27/18 Time of Encounter: 09:30 - Subjective Interval History: transfused one unit PRBC overnight - Exam Vitals: Temp Pulse Resp BP Pulse Ox 98.0 F 108 18 123/73 93 12/27/18 06:45 12/27/18 06:45 12/27/18 06:45 12/27/18 06:45 12/27/18 06:45 Exam: General: pleasant, without distress HEENT: Head atraumatic, normocephalic, EOMI, PERRL, absent ear discharge or trauma, Moist Mucous Membranes, uvula midline Neck: nontender to palpation, absent lymphadenopathy, Cardiovascualr: Regular rate and rhythm with no murmur, absent gallops or rubs, absent pedal edema, radial pulses 2 out of 4 Lungs: Clear to auscultation bilaterally, not in respiratory distress Abdomen: Soft nontender, nondistended positive bowel sounds, absent hepatomegaly Skin: warm and dry, absent rash, absent open wounds and nodules MSK: absent clubbing, cyanosis, joints without swelling. Left hip pain with movement Neuro: Alert oriented 3, no focal deficit Psych: good insight and judgment, - Assessment and Plan (1) Acute blood loss anemia Current Visit: Yes Status: Acute Assessment and Plan: Likely surgical blood loss. Pt was hypotensive in last 24hrs and hemoglobin was down to 9 from baseline of 15 s/p transfusion of 1 unit PRBC. Hemoglobin stable. Discontinue prazosin (2) Intertrochanteric fracture of left femur Current Visit: Yes Status: Acute Assessment and Plan: Left hip fracture s/p fall. Patient had ORIF and is postop day#1 Seen by PT and huber for discharge to rehab Social work on board for discharge planning (3) Diabetic ketoacidosis Current Visit: Yes Status: Acute Assessment and Plan: patient went into DKA this am with an anion gap of 15. Was started on an insulin drip and anion gap has closed Transitioned back to short and long acting insulin (4) Diabetes mellitus Current Visit: Yes Status: Acute Assessment and Plan: Resume basal and short acting insulin (5) BPH (benign prostatic hyperplasia) Current Visit: Yes Status: Acute Assessment and Plan: Continue prazosin and finasteride (6) Acute kidney injury Current Visit: Yes Status: Acute Assessment and Plan: Resolved with PRBC (7) Community acquired pneumonia Current Visit: Yes Status: Acute Assessment and Plan: On levaquin DVT Prophylaxis: heparin sc q 12h - Time Spent with Patient Total time spent is greater than 50% in coordination of care (as documented) at patient's floor/unit and/or counseling patient: Internal Medicine: Result - Labs CBC & Chem 7: 12/27/18 04:52 12/27/18 04:52 Labs: Short CBC 12/26/18 12/27/18 Range/Units 15:03 04:52 WBC 11.7 H 10.7 (4.3-11.1) K/mcL Hgb 9.1 L D 10.0 L (12.9-16.9) g/dL Hct 28.0 L 30.7 L (37.5-50.1) % Plt Count 203 213 (140-400) K/mcL Neutrophils # 6.9 5.6 (1.6-8.9) K/mcL BMP 12/27/18 04:52 Sodium 140 Potassium 4.3 Chloride 110 H Carbon Dioxide 25 BUN 32 H Creatinine 1.21 Glucose 27 L* Calcium 8.7 - ABG Interpretation ABG results: PT/INR, D-dimer PT 11.4 Seconds (9.4-12.1) 12/24/18 06:20 - Impressions Impressions Chest X-Ray 12/26/18 11:21 IMPRESSION: Linear infiltrates at right lung base could represent subsegmental atelectasis or possibly pneumonia D/ / Kingsley Kennedy MD / Kingsley Kennedy MD Interpreting Provider: Kingsley Kennedy MD Consult Discharge Plan - Plan [facility]errals: [facility] [Primary Care Provider] - (2) Intertrochanteric fracture of left femur Qualifiers: Encounter type: initial encounter Fracture type: closed Fracture alignment: displaced Qualified Code(s): S72.142A - Displaced intertrochanteric fracture of left femur, initial encounter for closed fracture (3) Diabetic ketoacidosis Qualifiers: Qualified Code(s): E13.10 - Other specified diabetes mellitus with k etoacidosis without coma (4) Diabetes mellitus Qualifiers: Diabetes mellitus type: type 2 Diabetes mellitus mcc insulin use: with mcc use Diabetes mellitus complication status: with unspecified complications Qualified Code(s): E11.8 - Type 2 diabetes mellitus with unspecified complications; 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
[2018-12-27] MEDS: levoFLOXacin 750 MG TABLET PO SCH (09:38)
[2018-12-27] MEDS: Insulin DETEMIR 100 UNIT/ML X5UNITS SQ SCH (21:36)
[2018-12-28] MEDS: 0.9 % Sodium Chloride 1,000 ML IVC SCH ×4 (02:18→14:51)
[2018-12-28] MEDS: traMADol 50 MG TABLET PO PRN ×3 (02:21→20:47)
[2018-12-28] MEDS: *HR* Heparin 5,000 UNIT/ML VIAL SQ SCH ×3 (04:29→20:47)
[2018-12-28] MEDS: OXYCODONE Oral CONC 10 MG/0.5 ML ORAL.SYG SL PRN ×4 (04:29→21:42)
[2018-12-28] MEDS ORDERED: *HR* OxyCODONE Immed Rel 5 MG TABLET PO ONE (05:50)
[2018-12-28 06:27] LABS: Basophils # 0.1 K/mcL (0.0-0.2); Basophils % 0.7 %; Eosinophils # 0.6 K/mcL (0.0-0.6); Eosinophils % 5.2 %; Hematocrit 32.5 % (37.5-50.1); Hemoglobin 10.7 g/dL (12.9-16.9); Immature Granulocytes % 0.5 % (0-4); Lymphocytes # 2.7 K/mcL (0.6-4.6); Lymphocytes % 25.2 %; Mean Corpuscular HGB Conc 32.9 g/dL (31.6-35.5); Mean Corpuscular Hemoglobin 29.3 pg (28.0-33.3); Mean Platelet Volume 10.2 fL (9.4-12.4); Monocytes % 9.2 %; Neutrophils # 6.3 K/mcL (1.6-8.9); Platelet Count 277 K/mcL (140-400); Red Blood Count 3.65 M/mcL (4.19-5.50); Red Cell Distribution Width 14.3 % (11.5-14.5); Segmented Neutrophils % 59.2 %
[2018-12-28 06:42] LABS: BUN/Creatinine Ratio 24 (6-26); Blood Urea Nitrogen 24 mg/dL (6-20); Calcium 9.5 mg/dL (8.6-10.3); Carbon Dioxide 25 mEq/L (23-29); Chloride 105 mEq/L (98-107); Glucose 273 mg/dL (70-105); Osmolality,Calculated 298 (280-300); Potassium 4.7 mEq/L (3.5-5.1); Sodium 137 mEq/L (136-145); eGFR For Non-African Americans > 60 (> 60)
[2018-12-28] MEDS: levoFLOXacin 750 MG TABLET PO SCH (08:09)
[2018-12-28] MEDS: Pregabalin 75 MG CAPSULE PO SCH ×2 (08:09→20:47)
[2018-12-28] MEDS: Insulin LISPRO 300 UNITS/3 ML VIAL SQ SCH ×3 (08:09→17:24)
[2018-12-28] MEDS: Finasteride 5 MG TABLET PO SCH (08:39)
--- NOTE | 2018-12-28 17:05 | Internal Med Progress Note ---
Hospitalist Progress Note - Encounter Date of Encounter: 12/28/18 Time of Encounter: 17:00 - Subjective Interval History: No acute events overnight. Awaiting placement - Exam Vitals: Temp Pulse Resp BP Pulse Ox 98.5 F 86 18 154/78 97 12/28/18 15:51 12/28/18 15:51 12/28/18 15:51 12/28/18 15:51 12/28/18 15:51 Exam: General: pleasant, without distress HEENT: Head atraumatic, normocephalic, EOMI, PERRL, absent ear discharge or trauma, Moist Mucous Membranes, uvula midline Neck: nontender to palpation, absent lymphadenopathy, Cardiovascualr: Regular rate and rhythm with no murmur, absent gallops or rubs, absent pedal edema, radial pulses 2 out of 4 Lungs: Clear to auscultation bilaterally, not in respiratory distress Abdomen: Soft nontender, nondistended positive bowel sounds, absent hepatomegaly Skin: warm and dry, absent rash, absent open wounds and nodules MSK: absent clubbing, cyanosis, joints without swelling. Left hip pain with movement Neuro: Alert oriented 3, no focal deficit Psych: good insight and judgment, - Assessment and Plan (1) Intertrochanteric fracture of left femur Current Visit: Yes Status: Acute Assessment and Plan: Left hip fracture s/p fall. Patient is/sp ORIF Seen by PT and huber for discharge to rehab Social work on board for discharge planning (2) Acute blood loss anemia Current Visit: Yes Status: Acute Assessment and Plan: Likely surgical blood loss. Pt was hypotensive in last 24hrs and hemoglobin was down to 9 from baseline of 15 s/p transfusion of 1 unit PRBC. Hemoglobin stable. Discontinue prazosin (3) Diabetic ketoacidosis Current Visit: Yes Status: Acute Assessment and Plan: patient went into DKA this am with an anion gap of 15. Was started on an insulin drip and anion gap has closed Transitioned back to short and long acting insulin (4) Diabetes mellitus Current Visit: Yes Status: Acute Assessment and Plan: Resume basal and short acting insulin (5) BPH (benign prostatic hyperplasia) Current Visit: Yes Status: Acute Assessment and Plan: Continue prazosin and finasteride (6) Acute kidney injury Current Visit: Yes Status: Acute Assessment and Plan: Resolved with PRBC (7) Community acquired pneumonia Current Visit: Yes Status: Acute Assessment and Plan: On levaquin DVT Prophylaxis: heparin sc q 12h - Time Spent with Patient Total time spent is greater than 50% in coordination of care (as documented) at patient's floor/unit and/or counseling patient: Internal Medicine: Result - Labs CBC & Chem 7: 12/28/18 06:10 12/28/18 06:10 Labs: Short CBC 12/28/18 Range/Units 06:10 WBC 10.7 (4.3-11.1) K/mcL Hgb 10.7 L (12.9-16.9) g/dL Hct 32.5 L (37.5-50.1) % Plt Count 277 (140-400) K/mcL Neutrophils # 6.3 (1.6-8.9) K/mcL BMP 12/28/18 06:10 Sodium 137 Potassium 4.7 Chloride 105 Carbon Dioxide 25 BUN 24 H Creatinine 0.99 Glucose 273 H Calcium 9.5 - ABG Interpretation ABG results: PT/INR, D-dimer PT 11.4 Seconds (9.4-12.1) 12/24/18 06:20 Consult Discharge Plan - Plan [facility]errals: [facility] [Primary Care Provider] - ____ (1) Intertrochanteric fracture of left femur Qualifiers: Encounter type: initial encounter Fracture type: closed Fracture alignment: displaced Qualified Code(s): S72.142A - Displaced intertrochanteric fracture of left femur, initial encounter for closed fracture (3) Diabetic ketoacidosis Qualifiers: Qualified Code(s): E13.10 - Other specified diabetes mellitus with ketoacidosis without coma (4) Diabetes mellitus Qualifiers: Diabetes mellitus type: type 2 Diabetes mellitus usp insulin use: with usp use Diabetes mellitus complication status: with unspecified complications Qualified Code(s): E11.8 - Type 2 diabetes mellitus with unspecified complications; Z79.4 - group home (current) use of insulin (5) BPH (benign prostatic hyperplasia) Qualifiers: Lower urinary tract symptom presence: unspecified whether lower urinary tract symptoms present Qualified Code(s): N40.0 - Benign prostatic hyperplasia without lower urinary tract symptoms (7) Community acquired pneumonia Qualifiers: Qualified Code(s): J18.9 - Pneumonia, unspecified organism
[2018-12-28] MEDS: Insulin DETEMIR 100 UNIT/ML X5UNITS SQ SCH (20:46)
[2018-12-29] MEDS: 0.9 % Sodium Chloride 1,000 ML IVC SCH ×4 (01:16→21:31)
[2018-12-29] MEDS: OXYCODONE Oral CONC 10 MG/0.5 ML ORAL.SYG SL PRN ×4 (01:48→19:37)
[2018-12-29] MEDS: *HR* Heparin 5,000 UNIT/ML VIAL SQ SCH ×3 (05:51→21:31)
[2018-12-29] MEDS: Finasteride 5 MG TABLET PO SCH (08:12)
[2018-12-29] MEDS: Pregabalin 75 MG CAPSULE PO SCH ×2 (08:12→21:30)
[2018-12-29] MEDS: Insulin LISPRO 300 UNITS/3 ML VIAL SQ SCH ×3 (08:12→17:18)
[2018-12-29] MEDS: levoFLOXacin 750 MG TABLET PO SCH (08:13)
--- NOTE | 2018-12-29 08:30 | Discharge Summary ---
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 On imaging he had an acute intertrochanteric fracture of the left femur with displacement. He is admitted for further care. At this time his chief complaint is pain but otherwise feels well. He was assessed with left hip fracture s/p fall. He underwent an ORIF by orthopedic surgery which he tolerated with no acute complication. He was seen by PT and huber for discharge to rehab. He went into DKA during his hospital course and was on an insulin drip for a couple of hours which has resolved. His home insulin regimen has been adjusted from 20 BID of lantus to 10 units qhs as he also had episodes of hypoglycemia with his home lantus dosing. He was also noted ot be intermittently hypotensive and his prazosin was d iscontinued. 35 minutes was spent discharging this patient Qualifiers: Encounter type: initial encounter Fracture type: closed Fracture alignment: displaced Qualified Code(s): S72.142A - Displaced intertrochanteric fracture of left femur, initial encounter for closed fracture (2) Acute blood loss anemia Priority: Primary Status: Acute (3) Diabetic ketoacidosis Priority: Primary Status: Acute Qualifiers: Qualified Code(s): E13.10 - Other specified diabetes mellitus with ketoacidosis without coma (4) Diabetes mellitus Priority: Primary Status: Acute Qualifiers: Diabetes mellitus type: type 2 Diabetes mellitus ad terminal makeup operator insulin use: with detention use Diabetes mellitus complication status: with unspecified complications Qualified Code(s): E11.8 - Type 2 diabetes mellitus with unspecified complications; 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 Rubi is a 53 year old male - Time Spent with Patient Total time spent providing and/or coordinating discharge services: - Discharge Medications Prescriptions: New Insulin DETEMIR [Levemir] 10 unit SQ HS 30 Days #30 [id number] Continue Liraglutide [Victoza 3-Mychal] 1.8 mg SQ DAILY Pregabalin [Lyrica] 300 mg PO BID Omeprazole [PriLOSEC] 20 mg PO DAILY Finasteride [Proscar] 5 mg PO DAILY Prazosin [Minipress] 1 mg PO HS Atorvastatin [Lipitor] 40 mg PO DAILY Melatonin 6 mg PO HS Metformin HCl [Metformin ER Osmotic] 2,000 mg PO BID Aspirin [Lo-Dose Aspirin EC] 81 mg PO DAILY Dicyclomine Hcl [Bentyl] 20 mg PO TID PRN PRN Reason: STOMACH PAIN FLUoxetine HCl [Prozac] 20 mg PO DAILY Tamsulosin HCl [Flomax] 0.4 mg PO DAILY Discontinued Insulin Glargine [Lantus] 20 unit SQ BID Home Medications: Atorvastatin [Lipitor] 40 mg PO DAILY 12/23/18 [History] Finasteride [Proscar] 5 mg PO DAILY 12/23/18 [History] Liraglutide [Victoza 3-Mychal] 1.8 mg SQ DAILY 12/23/18 [History] Melatonin 6 mg PO HS 12/23/18 [History] Omeprazole [PriLOSEC] 20 mg PO DAILY 12/23/18 [History] Prazosin [Minipress] 1 mg PO HS 12/23/18 [History] Pregabalin [Lyrica] 300 mg PO BID 12/23/18 [History] Aspirin [Lo-Dose Aspirin EC] 81 mg PO DAILY 12/24/18 [History] Dicyclomine Hcl [Bentyl] 20 mg PO TID PRN 12/24/18 [History] FLUoxetine HCl [Prozac] 20 mg PO DAILY 12/24/18 [History] Metformin HCl [Metformin ER Osmotic] 2,000 mg PO BID 12/24/18 [History] Tamsulosin HCl [Flomax] 0.4 mg PO DAILY 12/24/18 [History] Insulin DETEMIR [Levemir] 10 unit SQ HS 30 Days #30 [id number] 12/29/18 [Rx] Allergies/Adverse Reactions: Allergy/AdvReac Type Severity Reaction Status Date / Time adalimumab [From Humira] Allergy Joint Pain Verified 12/23/18 19:17 Date of admission: 12/23/18 20:28 Primary care physician: PCP SANDRA Consults: 12/23/18 19:19 Consult to Orthopedic Surgery [CONS] Stat Consulting Provider: Orthoped[facility] Reason for Consult: hip fracture Call Completed: Yes 12/24/18 18:37 Consult to Occupational Therapy [CONS] Routine Comment: Evaluate, develop and implement POC Reason for Consult: post hip surgery Does patient have active BEDREST order?: No Is patient medically & hemodynamically stable?: Yes Patient assessed for mobility or mobilized this visit?: Yes Consult to Orthopedic Navigator [CONS] [CONS] Routine Consult to Physical Therapy [CONS] Routine Comment: Evaluate, develop and implement POC Reason for Consult: post hip surgery Does patient have active BEDREST order?: No Is patient medically & hemodynamically stable?: Yes Patient assessed for mobility or mobilized this visit?: Yes Consult to Occupational Health Nurse [CONS] Routine Reason for SW Consult: post -op hip fracture RT Post Op Consult [CONS] Routine - Constitutional Vitals: Temp Pulse Resp BP Pulse Ox 98.4 F 96 16 136/79 95 12/29/18 08:00 12/29/18 08:00 12/29/18 08:00 12/29/18 08:00 12/29/18 08:22 General appearance: Present: A&O X 2, A&O X 3 Exam: General: pleasant, without distress HEENT: Head atraumatic, normocephalic, EOMI, PERRL, absent ear discharge or trauma, Moist Mucous Membranes, uvula midline Neck: nontender to palpation, absent lymphadenopathy, Cardiovascualr: Regular rate and rhythm with no murmur, absent gallops or rubs, absent pedal edema, radial pulses 2 out of 4 Lungs: Clear to auscultation bilaterally, not in respiratory distress Abdomen: Soft nontender, nondistended positive bowel sounds, absent hepatomegaly Skin: warm and dry, absent rash, absent open wounds and nodules MSK: absent clubbing, cyanosis, joints without swelling. Left hip pain with movement Neuro: Alert oriented 3, no focal deficit Psych: good insight and judgment, - Patient Status Disposition: Transfer SNF Condition: Good - Discharge Instructions [facility] With: [facility] [Primary Care Provider] -
[2018-12-29] MEDS: Insulin DETEMIR 100 UNIT/ML X5UNITS SQ SCH (21:31)
[2018-12-29] MEDS ORDERED: Insulin LISPRO 300 UNITS/3 ML VIAL SQ SCH (22:30)
[2018-12-30] MEDS: OXYCODONE Oral CONC 10 MG/0.5 ML ORAL.SYG SL PRN ×2 (04:29→08:34)
[2018-12-30] MEDS: *HR* Heparin 5,000 UNIT/ML VIAL SQ SCH (06:01)
[2018-12-30] MEDS: 0.9 % Sodium Chloride 1,000 ML IVC SCH (06:01)
[2018-12-30] MEDS ORDERED: Insulin LISPRO 300 UNITS/3 ML VIAL SQ SCH ×2 (07:30→21:00)
[2018-12-30] MEDS: Insulin LISPRO 300 UNITS/3 ML VIAL SQ SCH ×2 (08:26→11:50)
[2018-12-30] MEDS: Insulin DETEMIR 100 UNIT/ML X5UNITS SQ SCH ×2 (08:26→08:35)
[2018-12-30] MEDS: Pregabalin 75 MG CAPSULE PO SCH (08:28)
[2018-12-30] MEDS: Finasteride 5 MG TABLET PO SCH (08:28)
[2018-12-30] MEDS: levoFLOXacin 750 MG TABLET PO SCH (08:28)
--- NOTE | 2018-12-30 09:28 | Physician Discharge Referral ---
ExtendedCare Referral Info Provider in Charge after Transfer: PCP - Diagnosis (1) Acute blood loss anemia Priority: Secondary Status: Acute (2) Acute kidney injury Priority: Secondary Status: Acute (3) BPH (benign prostatic hyperplasia) Priority: Secondary Status: Chronic (4) Community acquired pneumonia Priority: Secondary Status: Acute (5) Diabetes mellitus Status: Acute (6) Diabetic ketoacidosis Priority: Secondary Status: Resolved (7) Intertrochanteric fracture of left femur Priority: Primary Status: Acute Prognosis: Good Aware of Diagnosis: Patient Aware of Prognosis: Patient - Transfer Medications Prescriptions: Oxycodone HCl/Acetaminophen [Percocet 5-325 mg Tablet] 1 each PO Q8H PRN 3 Days #5 tablet PRN Reason: Severe Pain Home Medications: Atorvastatin [Lipitor] 40 mg PO DAILY 12/23/18 [History] Finasteride [Proscar] 5 mg PO DAILY 12/23/18 [History] Liraglutide [Victoza 3-Mychal] 1.8 mg SQ DAILY 12/23/18 [History] Melatonin 6 mg PO HS 12/23/18 [History] Omeprazole [PriLOSEC] 20 mg PO DAILY 12/23/18 [History] Prazosin [Minipress] 1 mg PO HS 12/23/18 [History] Pregabalin [Lyrica] 300 mg PO BID 12/23/18 [History] Aspirin [Lo-Dose Aspirin EC] 81 mg PO DAILY 12/24/18 [History] Dicyclomine Hcl [Bentyl] 20 mg PO TID PRN 12/24/18 [History] FLUoxetine HCl [Prozac] 20 mg PO DAILY 12/24/18 [History] Metformin HCl [Metformin ER Osmotic] 2,000 mg PO BID 12/24/18 [History] Tamsulosin HCl [Flomax] 0.4 mg PO DAILY 12/24/18 [History] Insulin DETEMIR [Levemir] 10 unit SQ BID [id number] 12/30/18 [Rx] Insulin LISPRO [HumaLOG] 0 units SQ HS vial 12/30/18 [Rx] Insulin LISPRO [HumaLOG] 0 units SQ TIDAC vial 12/30/18 [Rx] Oxycodone HCl/Acetaminophen [Percocet 5-325 mg Tablet] 1 each PO Q8H PRN 3 Days #5 tablet 12/30/18 [Rx] levoFLOXacin [Levaquin] 750 mg PO DAILY 4 Days tablet 12/30/18 [Rx] Allergies/Adverse Reactions: Allergy/AdvReac Type Severity Reaction Status Date / Time adalimumab [From Humira] Allergy Joint Pain Verified 12/23/18 19:17 - Respiratory Orders None Smoking Cessation: Smoking cessation has been advised. For more information, call the [employer] Quit Line at 0-522-EZLJ-NOW. - Advance Directives Code Status: Full Code - Mobility Orders Other (non weight bearing left hip, mobility instructions as per Ortho, PT/OT) - Rehabiliation Orders Rehab Potential: Good Rehab Orders: ROM Exercises, Evaluation for Physical Therapy, Evaluation for Occupational Therapy - Treatments List/Other: sliding scale insulin regimen Sliding scale HS Lispro insulin: 201-220 3 units 221-260 4 units 261-300 5 units 301-350 6 units 351-400 7 units greater than 400 8 units Sliding scal TID AC Lispro insulin: 141-180 4 units 181-220 6 units 221-260 8 units 261-300 10 units 301-350 12 units 351-400 14 units greater than 400 16 units Please obtaine TID AC HS accu checks and levemir adjustments further outpt - Diet Orders No Concentrated Sweets CERTIFICATION: I certify that the transfer of the above named patient to an Extended Care Facility is necessary for the continuing treatment of the diagnosis listed. The above information is true and accurate reflection of patient's current condition. Confidential - Redisclosure prohibited without a patient's written consent.
--- NOTE | 2018-12-30 11:19 | Internal Med Progress Note ---
Hospitalist Progress Note - Encounter Date of Encounter: 12/30/18 Time of Encounter: 09:00 - Subjective Interval History: awake, feeling well. no cough or sob. no pain. denies fevers or chills. discussed changes to insulin made by his provider yesterday. admits he is eating far more food here then at home and that bs at home usually better controlled with home victoza and oral med. He is in agreement with insulin plan on dc and outpt adjustments being made further. + flatus and urinating without difficulty but he has not had a bowel movment. He refused any medication or suppository for this as in the past he gets profuse diarrhea with any laxative. He will fu with facility if he changes his mind. eating and drinking without nausea or emesis, no abd pain or distension - Exam Vitals: Temp Pulse Resp BP Pulse Ox 98.5 F 101 16 138/76 95 12/30/18 06:35 12/30/18 06:35 12/30/18 06:35 12/30/18 06:35 12/30/18 06:35 Exam: General: awake, alert, appears stated age HEENT:EOM intact pupils equal, round, moist mucus membranes Neck: supple, trachea midline Cardiovascular:regular rate and rhythm, normal S1 & S2, no lower extremity edema Lungs:Normal breath sounds, no wheezes, or crackles. 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 On imaging he had an acute intertrochanteric fracture of the left femur with displacement. He underwent an ORIF by orthopedic surgery which he tolerated with no acute complication. He was seen by PT and huber for discharge to rehab. fu with ortho outpt aspirin daily and ambulate as per discharge by previous provider (2) Acute blood loss anemia Current Visit: Yes Status: Acute Assessment and Plan: acute post surgical blood loss anemia. s/p transfusion of 1 unit PRBC. Hemoglobin stable. uptrending, asa daily only for vte ppx on dc (3) Acute kidney injury Current Visit: Yes Status: Resolved Assessment and Plan: Resolved with PRBC (4) BPH (benign prostatic hyperplasia) Current Visit: Yes Status: Chronic Assessment and Plan: Continue prazosin and finasteride (5) Community acquired pneumonia Current Visit: Yes Status: Acute Assessment and Plan: On levaquin and will complete oral course at rehab (6) Diabetes mellitus Current Visit: Yes Status: Acute Assessment and Plan: Levemir 10 units BID and medium SSI TID AC andSSI at HS on dc resume home oral med and victoza then down titrate insulin as appropriate (7) Diabetic ketoacidosis Current Visit: Yes Status: Resolved Assessment and Plan: patient went into DKA 4/2 with an anion gap of 15. Was started on an insulin drip and anion gap closed Transitioned back to short and long acting insulin by Dr White see DM plan above - Time Spent with Patient Total time spent is greater than 50% in coordination of care (as documented) at patient's floor/unit and/or counseling patient: 25 - 35 minutes Plan of Care Discussed with: patient Internal Medicine: Result - Labs CBC & Chem 7: 12/28/18 06:10 12/28/18 06:10 - ABG Interpretation ABG results: PT/INR, D-dimer PT 11.4 Seconds (9.4-12.1) 12/24/18 06:20 Consult Discharge Plan - Plan Additional Instructions: Discharge Instructions: IM nailing Please call [facility] ([phone]), your Primary Care Physician, or report to the Emergency Room if you have any of the following symptoms: Nausea, vomiting, fever greater that 101.5, swelling, chest pain, shortness of breath, increased pain/redness/drainage/odor for your incision site, numbness/tingling, or any other concerning symptoms. ACTIVITY:NON weight bearing to LEFT LEG.. You may progress as tolerated under the guidance of your physical therapist. You do not need to sleep with a pillow between your legs. You can also sleep on the operative side or on your stomach. Incentive Spirometer 10 times an hour. MEDICATIONS: Upon discharge resume your home medications. Take all the medications as prescribed. Take a stool softener if taking narcotic pain medications. Stool softeners are only effective if you drink enough fluids. Drink 6-8 glass of water or fluids a day, unless this is not allowed for another health problem. Despite using stool softeners, if you haven't had a bowel movement in 3 days, please switch to a gentle laxative. Gentle laxatives are sold over the counter. You should have a bowel movement within 24 hours, if not call the office. You will be discharged from the hospital with a prescription for pain medication. You are encouraged to decrease the use of narcotic pain medication as tolerated. Should you require a refill, please call the office. [facility] prescribes narcotic pain medication for only 4-6 weeks after surgery. If you require pain medication beyond this time period, you may be referred to your Primary Care Physician or to the Pain Clinic for further evaluation. Plan ahead for refills on pain medication as many narcotics either need to be picked up at the office or mailed. It is best to call 48-72 hours in advance of needing a prescription refill so you don't run out of medication. To help control the post-operative pain, you may take NSAIDs (Aleve,Advil, Motrin, ibuprofen, naprosyn) or Tylenol as prescribed on the bottle in addition to the pain medication. WOUND CARE: Leave the dressing on for 7 to 10 days. You may change the dressing if it is saturated greater than 50%. Do not get the dressing wet at anytime. Wash your hands with antibacterial soap, rinse and dry prior to any wound care. If you have skye the visiting nurse or rehab facility can remove the stapes 10-14 days after surgery and place steri-strips across the wound. Leave the steri-strips in place until they fall off on their own. You may let water from the shower run on top of the steri-strips. If you do not have a visiting nurse or rehab facility, you will need to return to the office at 10-14 days for the skye to be removed. If you have itching or redness around the dressing call the office. FOLLOW-UP: Please follow up with your surgeon in the orthopedic clinic in 6 weeks from the day of surgery. If you have skye that need to be removed, you will need to come back to the office in 10-14 days from the day of surgery. Referrals: Geraldine Schmitt PAC [Physician Scientific Illustrator] - 01/05/19 2:50 pm Prescriptions: Oxycodone HCl/Acetaminophen [Percocet 5-325 mg Tablet] 1 each PO Q8H PRN 3 Days #5 tablet PRN Reason: Severe Pain (1) Intertrochanteric fracture of left femur Qualifiers: Encounter type: initial encounter Fracture type: closed Fracture alignment: displaced Qualified Code(s): S72.142A - Displaced intertrochanteric fracture of left femur, initial encounter for closed fracture (4) BPH (benign prostatic hyperplasia) Qualifiers: Lower urinary tract symptom presence: unspecified whether lower urinary tract symptoms present Qualified Code(s): N40.0 - Benign prostatic hyperplasia without lower urinary tract symptoms (5) Community acquired pneumonia Qualifiers: Lung location: unspecified part of lung (6) Diabetes mellitus Qualifiers: Diabetes mellitus type: type 2 Diabetes mellitus terminal operations manager insulin use: with terminal operations manager use Diabetes mellitus complication status: with unspecified complications Qualified Code(s): E11.8 - Type 2 diabetes mellitus with unspecified complications; 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
[2018-12-30 11:21] VITALS: BP 107/95
[2018-12-30] MEDS: traMADol 50 MG TABLET PO PRN (11:32)
== END 2018-12-30 13:07 | DRG 480 ==
LOC: 3NENU 18:52 → EMEROOARM 18:52 → 3NENU 20:13 → SUATTDRO 20:28 → ICNU 12-25 11:38 → 3NENU 12-25 15:58
PROVIDERS: ADMIT Internal Medicine; ATTEND Internal Medicine

== ENCOUNTER 2020-05-30 15:32 | Inpatient (IN) ==
[2020-05-30] MEDS ORDERED: 0.9 % Sodium Chloride 1,000 ML IVC ONE (16:47)
[2020-05-30 18:08] LABS: Basophils # 0.1 K/mcL (0.0-0.2); Basophils % 1.7 %; Eosinophils # 0.5 K/mcL (0.0-0.6); Eosinophils % 7.2 %; Hematocrit 39.7 % (37.5-50.1); Hemoglobin 12.1 g/dL (12.9-16.9); Immature Granulocytes % 0.4 % (0-4); Lymphocytes # 1.1 K/mcL (0.6-4.6); Lymphocytes % 15.6 %; Mean Corpuscular HGB Conc 30.5 g/dL (31.6-35.5); Mean Corpuscular Hemoglobin 29.7 pg (28.0-33.3); Mean Corpuscular Volume 97.3 fL (83.0-100.0); Mean Platelet Volume 10.9 fL (9.4-12.4); Monocytes # 1.3 K/mcL (0.0-1.3); Monocytes % 18.8 %; Neutrophils # 3.9 K/mcL (1.6-8.9); Platelet Count 245 K/mcL (140-400); Red Blood Count 4.08 M/mcL (4.19-5.50); Red Cell Distribution Width 15.5 % (11.5-14.5); Segmented Neutrophils % 56.3 %; White Blood Count 6.9 K/mcL (4.3-11.1)
[2020-05-30 18:38] LABS: Bacteria,Urine Few per hpf (None-Few); Bilirubin,Urine Negative (Negative); Blood,Urine Small (Negative); Clarity,Urine Clear (Clear); Color,Urine Light-Yellow (Yellow); Glucose,Urine (UA) 200 mg/dL (Normal); Ketones,Urine Negative (Negative); Leukocyte Esterase,Urine Negative (Negative); Mucus,Urine Few per lpf (None-Few); Nitrite,Urine Negative (Negative); Protein,Urine 70 mg/dL (Neg-Trace); RBC,Urine 0-3 per hpf (0-3); Specific Gravity,Urine 1.013 (1.010-1.025); Urobilinogen,Urine Normal (Normal); WBC,Urine 0-3 per hpf (0-3)
[2020-05-30 18:44] LABS: Albumin 3.7 g/dL (3.5-5.7); Albumin/Globulin Ratio 0.9 (1.1-2.2); Bilirubin,Indirect 0.4 mg/dL (0.0-1.0); Bilirubin,Total 0.4 mg/dL (0.3-1.0); Globulin 3.9 g/dL (2.4-3.5); Platelet Estimate Normal (Normal); Total Protein 7.6 g/dL (6.4-8.9)
[2020-05-30 18:46] LABS: Calcium 10.8 mg/dL (8.6-10.3); Potassium 4.8 mEq/L (3.5-5.1); Troponin I 0.03 ng/mL (< 0.04)
[2020-05-30 19:45] LABS: Acetaminophen < 10 mcg/mL (10-20); Ethanol < 10 mg/dL (Less than 10); Salicylate < 2.5 mg/dL (15.0-30.0); Vancomycin,Trough < 2 mcg/mL (5-10)
[2020-05-30] MEDS ORDERED: Naloxone 0.4 MG/ML INJ IVP PRN (21:02)
[2020-05-30] MEDS ORDERED: 0.9 % Sodium Chloride 1,000 ML IVC SCH (21:45)
[2020-05-30] MEDS ORDERED: Dextrose Gel 15 GM/37.5 ML TUBE PO PRN ×2 (22:10)
[2020-05-30] MEDS ORDERED: D5% in Water 1,000 ML IVC PRN (22:10)
[2020-05-30] MEDS ORDERED: *HR* Dextrose 50 % in Water (Vial) 50 ML VIAL IVP PRN (22:10)
[2020-05-30] MEDS ORDERED: Thiamine (B-1) 100 MG in 0.9 % Sodium Chloride 50 ML IVPB SCH (22:45)
[2020-05-30 22:52] LABS: Estimated Average Glucose 269 mg/dl
[2020-05-30] MEDS ORDERED: Perflutren Lipid Microsphere 1.3 ML in 0.9 % Sodium Chloride 8.7 ML IVP PRN (22:59)
[2020-05-30] MEDS: Cefepime HCl 2,000 MG in Water for inj. (sterile) 20 ML IVP SCH (23:16)
[2020-05-30] MEDS: Metoprolol XL (24 HR) Succ 50 MG TAB.ER.24H PO SCH (23:16)
[2020-05-31] MEDS: Insulin LISPRO 300 UNITS/3 ML VIAL SQ SCH ×6 (00:35→21:12)
[2020-05-31 01:25] LABS: Basophils # 0.2 K/mcL (0.0-0.2); Basophils % 1.8 %; Eosinophils # 0.5 K/mcL (0.0-0.6); Eosinophils % 5.9 %; Hematocrit 37.2 % (37.5-50.1); Hemoglobin 11.5 g/dL (12.9-16.9); Immature Granulocytes % 0.2 % (0-4); Lymphocytes # 1.5 K/mcL (0.6-4.6); Lymphocytes % 18.2 %; Mean Corpuscular HGB Conc 30.9 g/dL (31.6-35.5); Mean Corpuscular Hemoglobin 29.4 pg (28.0-33.3); Mean Corpuscular Volume 95.1 fL (83.0-100.0); Monocytes # 1.7 K/mcL (0.0-1.3); Monocytes % 20.6 %; Neutrophils # 4.5 K/mcL (1.6-8.9); Platelet Count 265 K/mcL (140-400); Red Blood Count 3.91 M/mcL (4.19-5.50); Red Cell Distribution Width 15.5 % (11.5-14.5); Segmented Neutrophils % 53.3 %; White Blood Count 8.4 K/mcL (4.3-11.1)
[2020-05-31 01:33] LABS: Prothrombin Time 11.5 Seconds (9.4-12.1)
[2020-05-31 01:45] LABS: Albumin 3.7 g/dL (3.5-5.7); Albumin/Globulin Ratio 0.9 (1.1-2.2); Bilirubin,Total 0.4 mg/dL (0.3-1.0); Calcium 10.7 mg/dL (8.6-10.3); Chol/HDL Ratio 4.2 (0-4.9); Globulin 3.9 g/dL (2.4-3.5); Magnesium 1.7 mg/dL (1.6-2.6); Potassium 5.7 mEq/L (3.5-5.1); Total Protein 7.6 g/dL (6.4-8.9)
[2020-05-31 02:13] LABS: Platelet Estimate Normal (Normal)
[2020-05-31 02:14] LABS: Hypochromasia Present (Not Present); Smudge Cells Present (Not Present)
[2020-05-31 03:13] LABS: Protein/Creatinine Ratio,Urine 2.38 mg/mg (0.00-0.20)
[2020-05-31] MEDS: Cefepime HCl 2,000 MG in Water for inj. (sterile) 20 ML IVP SCH ×2 (11:13→23:15)
[2020-05-31] MEDS ORDERED: *HR* Dextrose 50 % in Water (Vial) 50 ML VIAL IVP ONE (12:00)
[2020-05-31 12:10] LABS: Folate 18.1 ng/mL (3.0-16.0)
[2020-05-31] MEDS ORDERED: Albuterol 2.5 MG/3 ML NEBULIZER IH ONE (12:15)
[2020-05-31] MEDS: 0.9 % Sodium Chloride 1,000 ML IVC SCH ×3 (13:02→15:01)
[2020-05-31] MEDS: Thiamine (B-1) 100 MG in 0.9 % Sodium Chloride 50 ML IVPB SCH (13:15)
[2020-05-31] MEDS ORDERED: Insulin LISPRO 300 UNITS/3 ML VIAL SQ ONE (13:15)
[2020-05-31] MEDS: *HR* Heparin 5,000 UNIT/ML VIAL SQ SCH (16:46)
[2020-05-31] MEDS ORDERED: Insulin DETEMIR 100 UNIT/ML X5UNITS SQ SCH (21:00)
[2020-05-31] MEDS: QUEtiapine Fumarate 25 MG TABLET PO SCH (21:53)
[2020-05-31] MEDS: Metoprolol XL (24 HR) Succ 50 MG TAB.ER.24H PO SCH (21:53)
[2020-05-31] MEDS: Melatonin 3 MG TABLET PO SCH (21:54)
[2020-06-01 04:22] LABS: Basophils # 0.2 K/mcL (0.0-0.2); Basophils % 2.1 %; Eosinophils # 0.7 K/mcL (0.0-0.6); Eosinophils % 9.3 %; Hematocrit 34.1 % (37.5-50.1); Hemoglobin 10.7 g/dL (12.9-16.9); Immature Granulocytes % 0.4 % (0-4); Lymphocytes # 2.5 K/mcL (0.6-4.6); Lymphocytes % 31.8 %; Mean Corpuscular HGB Conc 31.4 g/dL (31.6-35.5); Mean Corpuscular Hemoglobin 30.8 pg (28.0-33.3); Mean Corpuscular Volume 98.3 fL (83.0-100.0); Mean Platelet Volume 10.7 fL (9.4-12.4); Monocytes # 1.8 K/mcL (0.0-1.3); Monocytes % 22.6 %; Neutrophils # 2.7 K/mcL (1.6-8.9); Platelet Count 241 K/mcL (140-400); Red Blood Count 3.47 M/mcL (4.19-5.50); Red Cell Distribution Width 15.7 % (11.5-14.5); Segmented Neutrophils % 33.8 %
[2020-06-01 04:42] LABS: Calcium 9.4 mg/dL (8.6-10.3); Magnesium 1.5 mg/dL (1.6-2.6); Phosphorous 2.8 mg/dL (2.7-4.5); Potassium 4.2 mEq/L (3.5-5.1)
[2020-06-01 04:46] LABS: Platelet Estimate Normal (Normal)
[2020-06-01] MEDS: *HR* Heparin 5,000 UNIT/ML VIAL SQ SCH ×2 (06:08→17:24)
[2020-06-01] MEDS ORDERED: Magnesium Sulfate 1 GM/102 ML PIGGYBACK IVPB ONE (07:42)
[2020-06-01] MEDS: Insulin LISPRO 300 UNITS/3 ML VIAL SQ SCH ×7 (08:25→20:53)
[2020-06-01] MEDS: Sennosides/Docusate Sodium TABLET PO SCH (08:26)
[2020-06-01] MEDS: Folic Acid 1 MG TABLET PO SCH (08:26)
[2020-06-01] MEDS: Aspirin Enteric Coated 81 MG Tablet PO SCH (08:26)
[2020-06-01] MEDS ORDERED: Insulin DETEMIR 100 UNIT/ML X5UNITS SQ SCH (09:00)
[2020-06-01] MEDS: Thiamine (B-1) 100 MG in 0.9 % Sodium Chloride 50 ML IVPB SCH (10:26)
[2020-06-01] MEDS: Cefepime HCl 2,000 MG in Water for inj. (sterile) 20 ML IVP SCH ×2 (12:35→22:37)
[2020-06-01] MEDS ORDERED: Ringers Solution, Lactated 500 ML IVC SCH (15:30)
[2020-06-01] MEDS: Metoprolol XL (24 HR) Succ 50 MG TAB.ER.24H PO SCH (20:52)
[2020-06-01] MEDS: QUEtiapine Fumarate 25 MG TABLET PO SCH (20:52)
[2020-06-01] MEDS: Insulin DETEMIR 100 UNIT/ML X5UNITS SQ SCH (20:52)
[2020-06-01] MEDS: Melatonin 3 MG TABLET PO SCH (20:52)
[2020-06-02 03:05] LABS: Basophils # 0.2 K/mcL (0.0-0.2); Basophils % 2.1 %; Eosinophils # 0.9 K/mcL (0.0-0.6); Hematocrit 33.9 % (37.5-50.1); Hemoglobin 11.2 g/dL (12.9-16.9); Immature Granulocytes % 0.4 % (0-4); Lymphocytes # 2.8 K/mcL (0.6-4.6); Lymphocytes % 32.6 %; Mean Corpuscular Hemoglobin 31.1 pg (28.0-33.3); Mean Corpuscular Volume 94.2 fL (83.0-100.0); Mean Platelet Volume 10.6 fL (9.4-12.4); Monocytes # 1.8 K/mcL (0.0-1.3); Monocytes % 21.3 %; Neutrophils # 2.9 K/mcL (1.6-8.9); Platelet Count 259 K/mcL (140-400); Red Cell Distribution Width 15.3 % (11.5-14.5); Segmented Neutrophils % 33.6 %; White Blood Count 8.6 K/mcL (4.3-11.1)
[2020-06-02 03:17] LABS: Calcium 10.1 mg/dL (8.6-10.3); Magnesium 1.7 mg/dL (1.6-2.6); Phosphorous 2.6 mg/dL (2.7-4.5); Potassium 3.8 mEq/L (3.5-5.1)
[2020-06-02 04:24] LABS: Platelet Estimate Normal (Normal)
[2020-06-02 04:25] LABS: Anisocytosis 1+ (Not Present)
[2020-06-02] MEDS: *HR* Heparin 5,000 UNIT/ML VIAL SQ SCH ×2 (05:42→17:01)
[2020-06-02] MEDS: Insulin LISPRO 300 UNITS/3 ML VIAL SQ SCH ×7 (08:34→20:34)
[2020-06-02] MEDS: Sennosides/Docusate Sodium TABLET PO SCH (08:35)
[2020-06-02] MEDS: Folic Acid 1 MG TABLET PO SCH (08:35)
[2020-06-02] MEDS: Aspirin Enteric Coated 81 MG Tablet PO SCH (08:35)
[2020-06-02] MEDS: Thiamine (B-1) 100 MG in 0.9 % Sodium Chloride 50 ML IVPB SCH (08:35)
[2020-06-02] MEDS: Insulin DETEMIR 100 UNIT/ML X5UNITS SQ SCH ×2 (08:36→20:36)
[2020-06-02] MEDS: Acetaminophen 325 MG TABLET PO PRN ×2 (08:39→20:55)
[2020-06-02] MEDS: Cefepime HCl 2,000 MG in Water for inj. (sterile) 20 ML IVP SCH ×2 (12:08→22:45)
[2020-06-02] MEDS ORDERED: Ringers Solution, Lactated 1,000 ML IVC SCH (12:45)
[2020-06-02] MEDS: Metoprolol XL (24 HR) Succ 50 MG TAB.ER.24H PO SCH (20:35)
[2020-06-02] MEDS: Melatonin 3 MG TABLET PO SCH (20:35)
[2020-06-02] MEDS: QUEtiapine Fumarate 25 MG TABLET PO SCH (20:35)
[2020-06-03] MEDS: *HR* Heparin 5,000 UNIT/ML VIAL SQ SCH ×2 (05:23→19:16)
[2020-06-03 05:30] LABS: Calcium 9.6 mg/dL (8.6-10.3); Magnesium 1.4 mg/dL (1.6-2.6); Phosphorous 3.2 mg/dL (2.7-4.5); Potassium 3.8 mEq/L (3.5-5.1)
[2020-06-03] MEDS ORDERED: Magnesium Sulfate 1 GM/102 ML PIGGYBACK IVPB ONE (07:39)
[2020-06-03] MEDS: Ondansetron ODT 4 MG TAB.RAPDIS SL PRN ×2 (08:19→16:31)
[2020-06-03] MEDS: Insulin LISPRO 300 UNITS/3 ML VIAL SQ SCH ×7 (08:20→21:16)
[2020-06-03] MEDS: Insulin DETEMIR 100 UNIT/ML X5UNITS SQ SCH ×2 (08:20→21:20)
[2020-06-03] MEDS: Folic Acid 1 MG TABLET PO SCH (08:21)
[2020-06-03] MEDS: Aspirin Enteric Coated 81 MG Tablet PO SCH (08:21)
[2020-06-03] MEDS: Sennosides/Docusate Sodium TABLET PO SCH (08:22)
[2020-06-03] MEDS: Cefepime HCl 2,000 MG in Water for inj. (sterile) 20 ML IVP SCH ×2 (12:04→22:56)
[2020-06-03] MEDS: QUEtiapine Fumarate 25 MG TABLET PO SCH (21:20)
[2020-06-03] MEDS: Metoprolol XL (24 HR) Succ 50 MG TAB.ER.24H PO SCH (21:20)
[2020-06-03] MEDS: Melatonin 3 MG TABLET PO SCH (21:20)
[2020-06-03] MEDS: Acetaminophen 325 MG TABLET PO PRN (21:21)
[2020-06-04] MEDS: *HR* Heparin 5,000 UNIT/ML VIAL SQ SCH (05:56)
[2020-06-04 07:52] VITALS: BP 133/81
[2020-06-04] MEDS: Insulin LISPRO 300 UNITS/3 ML VIAL SQ SCH ×2 (08:39)
[2020-06-04] MEDS: Insulin DETEMIR 100 UNIT/ML X5UNITS SQ SCH (08:40)
[2020-06-04] MEDS: Sennosides/Docusate Sodium TABLET PO SCH (08:41)
[2020-06-04] MEDS: Ondansetron ODT 4 MG TAB.RAPDIS SL PRN (08:47)
[2020-06-04] MEDS: Folic Acid 1 MG TABLET PO SCH (08:48)
[2020-06-04] MEDS: Aspirin Enteric Coated 81 MG Tablet PO SCH (08:48)
[2020-06-04 09:50] LABS: Calcium 10.9 mg/dL (8.6-10.3); Magnesium 1.8 mg/dL (1.6-2.6); Phosphorous 3.4 mg/dL (2.7-4.5); Potassium 4.1 mEq/L (3.5-5.1)
[2020-06-04] MEDS: Cefepime HCl 2,000 MG in Water for inj. (sterile) 20 ML IVP SCH (10:08)
== END 2020-06-04 12:15 | disposition home health service (06) | DRG 682 ==
LOC: EMEROOARM 15:32 → 3ANU 15:32 → SUATTDRO 19:26 → 3ANU 19:57 → SUATTDRO 06-02 15:18
PROVIDERS: ADMIT Family Medicine; ATTEND Family Medicine